=== PATIENT | male | born 1940 | race Caucasian/White ===

== ENCOUNTER 2019-12-11 10:31 | Emergency (ER) | payer OTHER ==
[~2019-12-11] VITALS: Ht 152.4 cm; Wt 86.2 kg
== END 2019-12-11 15:00 | disposition home or self-care (01) ==
LOC: ER 10:31
DX: S81.822A Laceration with foreign body, left lower leg, initial encounter (principal); W45.8XXA Other foreign body or object entering through skin, initial encounter; Y93.89 Activity, other specified; Y92.89 Other specified places as the place of occurrence of the external cause; Y99.8 Other external cause status